=== PATIENT | male | born 1940 | race Caucasian/White ===

== ENCOUNTER 2016-10-25 15:26 | Inpatient (IN) | payer MEDICARE, OTHER ==
[~2016-10-25] VITALS: Ht 177.8 cm; Wt 96.0 kg
--- NOTE | 2016-10-28 07:51 | HP ---
ADMIT: 10/25/2016 RM/LOC: 421 [facility] MR#: [id number] [facility]#: [id number] [address] [address] [place] [address] History and Physical SEX: M AGE: 76 : 1940 DATE OF SERVICE: CHIEF COMPLAINT: Chest pain. HISTORY OF PRESENT ILLNESS: This is a 76-year-old gentleman. He has a history of coronary disease with a bypass many years ago. He has noticed apparently over the past few weeks that when he exercised on his treadmill, he will get tired and have to sit down for a while to rest. This actually happened today and he had to sit down and rest, but then when he got back on the treadmill, he was unable to finish his work out. He then decided to go out and finish his mowing, but only got part way done and had chest pressure that was tight in the middle of his chest that was severe and limiting, so he decided to come in and they came into the emergency room. In the emergency room, he was found to have a troponin of 11, EKG with some lateral ischemic- type changes, inferior IA, age indeterminate. PAST MEDICAL HISTORY: Includes coronary artery disease, status post bypass. He has hypertension, hyperlipidemia, obstructive sleep apnea, on CPAP. He has diabetes type 2, vitamin D deficiency. PAST SURGICAL HISTORY: Include bypass x3, tonsillectomy, cataract surgery. MEDICATIONS: Include: 1. Aspirin 81 mg daily. 2. Vitamin D 1000 units daily. 3. Dapagliflozin 10 mg or placebo. 4. Glipizide 5 mg take one twice a day. 5. Metformin 2000 mg daily. 6. Lopressor 50 mg b.i.d. 7. Pravastatin 10 mg at bedtime. 8. Valsartan/hydrochlorothiazide 160/12.5, one by mouth daily. ALLERGIES: AMLODIPINE, ACTOS, AND CRESTOR. FAMILY HISTORY: Heart disease, arthritis, hypertension. SOCIAL HISTORY: He is a former smoker, none currently. REVIEW OF SYSTEMS: Other complete review of systems obtained and negative except as above. PHYSICAL EXAMINATION: VITAL SIGNS: Blood pressure is 140s over 60s, pulse 77, ox saturation 99% on room air. GENERAL: This is a well-appearing 76-year-old gentleman, no apparent distress. He is alert. He is oriented. HEENT: He is wearing glasses. Pupils are equal, round, and reactive to light and accommodation. His extraocular muscles are intact. His throat is clear. NECK: Supple. HEART: Regular rate and rhythm. ADMIT: 10/25/2016 RM/LOC: 421 [facility] MR#: [id number] [address] [address] [address] [facility] [place] [address] History and Physical SEX: M AGE: 76 : 1940 LUNGS: Diminished, but clear bilaterally. ABDOMEN: Protuberant, soft, without any tenderness. His bowel sounds are normal. EXTREMITIES: Lower extremities have 1+ lower extremity pitting edema bilaterally. He can move all extremities equally bilaterally. SKIN: Exam is normal. LABORATORY AND X-RAY DATA: White count is 11.5, hemoglobin 15.5, platelets of 234. BMP with a sodium 139, potassium 4.0, magnesium 1.9, creatinine 1.3, glucose is 299. BUN 27, troponin 11.3, MB 14.2, CK 221. Chest x-ray shows left lower lobe atelectasis. INR is normal. ASSESSMENT: 1. Non ST elevated myocardial infarction. 2. Coronary artery disease. 3. Diabetes. 4. Hypertension. 5. Hyperlipidemia. PLAN: He has been put on heparin. Cardiology has been consulted. His pain is currently under control. He has nitroglycerin paste on at the current time. We will continue to watch his blood sugars and blood pressures throughout his stay. It sounds like his plan will be to get a cardiac cath in the morning. Phan Marsh MD/ joaquin JOB #: [id number] CC: Phan Marsh, Attending Physician Phan Marsh, Family Physician
--- NOTE | 2016-11-01 10:31 | ER ---
ADMIT: 10/25/2016 RM/LOC: 421 [facility] MR#: [id number] [address] [address] [place] [address] Emergency Room Report SEX: M AGE: 76 : 1940 DATE: 10/25/2016 ADDENDUM: A 76-year-old white male coming in with chest pain on exertion. He was mowing his lawn. When he stops, the pain goes away. Put an inch of nitroglycerin paste on him. Chest x-ray and EKG, nothing acute; however, he does have a bump in his troponin of 11.3. We started heparin protocol for cardiac. I spoke with Dr. Nayak and Dr. Marsh, they will admit. He will be n.p.o. after midnight, and I think they are going to laboratory chemist in the a.m. CONDITION ON DISCHARGE: Critical, but stable. Daniel Ramirez MD/ joaquin JOB #: [id number] CC: Phan Marsh MD, Attending Physician Phan Marsh MD, Family Physician
--- NOTE | 2016-11-03 15:58 | CO ---
ADMIT: 10/25/2016 RM/LOC: 421 [facility] MR#: [id number] [address] [address] [place] [address] Consultation SEX: M AGE: 76 : 1940 DATE OF CONSULTATION: 10/26/2016 ATTENDING PHYSICIAN: Phan Marsh CONSULTING PHYSICIAN: Jacques Nayak MD REASON FOR CONSULT: NonST-elevated myocardial infarction. Makenna Benoit RN, scribing for Dr. Jacques Nayak. HISTORY OF PRESENT ILLNESS: Duke is a pleasant 76-year-old male, I have been asked to see in Cardiology consultation by Dr. Marsh for chest discomfort. He follows regularly with Dr. Reyna in [facility] for his history of coronary artery disease. He is status post three vessel bypass, JUAREZ to LAD, reverse SVG to OM1, and SVG to PDA in 2003. In 2008, he had myocardial infarction again and had cardiac catheterization performed demonstrating three patent grafts. He also has PCI to his mid LAD in the year 1999. Last stress test was in 2008 prior to his most recent cardiac catheterization. He is intolerant to multiple statins and has tried several stating that he is now on pravastatin, which he is concerned that he is having myalgias from as well. He also has history of sleep apnea, diabetes, hypertension, and hyperlipidemia as well as former tobacco use. Duke presented to [facility] yesterday late afternoon with complaints of chest discomfort. He states that he has been having chest discomfort off and on since Tuesday. He exercises daily on his treadmill at home. He said two weeks ago, he was noting decreased activity tolerance and shortness of breath and fatigue on treadmill similar to what he had prior to PCI. On Tuesday, he had chest pain while on the treadmill after a few minutes, rested and this went away. He tried it again on Tuesday as well as Tuesday and had similar results. He stated that his chest discomfort was a pressure, radiating to his back and into his shoulders. He stated it felt like he had somebody holding his breath. On Tuesday morning, around 5:00 a.m., he was very stiff and sore. He was sure was because of his statin medication. So he went back to bed and rested. When he did get up later in the afternoon, he decided to try a mow his lawn and had chest discomfort again at that point. He rested for an hour or so and tried it again resulting in increased shortness breath and increased chest pain. He called the [facility] office at that point and was instructed to go to the emergency room, but instead he called his primary care physician, who encouraged him to be evaluated by the ER, which he eventually did. On the arrival to the ER, lab work was obtained demonstrating CK of 221, MB of 14.3, and troponin of 11.3. EKG did not demonstrate any significant ST elevation and since he has been at rest at the hospital, he has been pain-free. Overnight, he denies any chest discomfort. His cardiac enzymes have been trended out with second set troponin of 12.0 and third of 11.4. CK has been normal. Vital signs have been stable and he has been afebrile. PAST MEDICAL HISTORY: ADMIT: 10/25/2016 RM/LOC: 421 [facility] MR#: [id number] [address] [place] [id number] DUKE MOROCHO [facility] [place] [address] Consultation SEX: M AGE: 76 : 1940 1. Hypertension. 2. Hyperlipidemia. 3. Diabetes. 4. Former tobacco use. 5. Obstructive sleep apnea on CPAP. 6. Coronary artery disease as outlined above. 7. Colon polyps. 8. Cataracts. 9. Hiatal hernia. PAST SURGICAL HISTORY: Left cataract surgery, right cataract surgery, tonsillectomy, adenoidectomy, and bypass surgery. ALLERGIES: MULTIPLE STATIN INTOLERANCE. MEDICATIONS: Current medications include: 1. Aspirin 162 mg p.o. daily. 2. Diovan 320 p.o. daily. 3. Glucotrol XL 5 p.o. b.i.d. 4. Hydrochlorothiazide 12.5 p.o. daily. 5. Lopressor 50 p.o. b.i.d. 6. Norvasc 5 p.o. daily. 7. Pravachol 40 mg p.o. at bedtime. He is having steady drug for diabetes. 8. NovoLog insulin sliding scale before meals and at bedtime. 9. He is currently on a heparin drip per protocol. FAMILY HISTORY: Positive family history of coronary artery disease in multiple family members. Positive family history of stroke and diabetes. SOCIAL HISTORY: Duke is . He lives at home with his . He denies any special diet. He has former tobacco use as well as former chewing tobacco. REVIEW OF SYSTEMS: GENERAL: Reports increased fatigue over the last 2 weeks. Denies any recent fever, chills, or sweats or weight changes. EYES: History of cataracts status post extraction. Denies double vision, blurred vision, or glaucoma. ENT: Denies hearing loss or problems with nose, mouth or throat. PULMONARY: History of obstructive sleep apnea, on CPAP. Denies cough, sputum production, asthma, emphysema or bronchitis. Denies snoring loudly, wakefulness at night, or fatigue upon awakening. GASTROINTESTINAL: Denies heartburn or difficulty swallowing. No change in bowel habits. Denies dark or bloody stools. No history of ulcers, hiatal hernia, or gallbladder or liver disease. GENITOURINARY: Denies dysuria, hematuria, nocturia, urinary tract infection, or kidney stones. Denies history of renal insufficiency or failure. MUSCULOSKELETAL: Denies history of arthritis or gout. Denies muscle or joint pains. ENDOCRINE: History of diabetes. Denies thyroid disease. ADMIT: 10/25/2016 RM/LOC: 421 [facility] MR#: [id number] [address] [facility] [address] [place] [phone] [place] [address] Consultation SEX: M AGE: 76 : 1940 HEMATOLOGIC: Denies history of anemia, easy bruising, or cancer. NEUROLOGIC: Denies chronic headaches, dizziness, syncope, stroke, seizures or numbness or tingling. PSYCHIATRIC: Denies history of mental illness or feelings of depression. PHYSICAL EXAMINATION: VITAL SIGNS: Blood pressure 139/75, heart rate 64, respirations 16, temperature 96.5, oxygenation 96% on room air. SKIN: [place], warm and dry. EYES: Sclerae clear. No xanthelasmas. ENT: Oral mucosa is pink and moist. No jugular venous distention or carotid bruits. CHEST: Respirations are even and unlabored. Lungs are clear to auscultation. HEART: Regular rate and rhythm. Normal S1, S2. No murmurs, rubs or gallops. ABDOMEN: Soft and nontender. MUSCULOSKELETAL: Gait is normal. EXTREMITIES: Peripheral pulses palpable. No clubbing, cyanosis or edema. PSYCHIATRIC: Alert and oriented. Mood and affect are appropriate. DIAGNOSTIC DATA: Chest x-ray on 10/25 shows left lower lobe atelectasis. Sodium 139, potassium 4.0, BUN 27, creatinine 1.3, glucose 299, and magnesium 1.9. White blood cell count 11.5, hemoglobin 15.5, hematocrit 46.2, platelets 198. Third set of cardiac enzymes show a CK of 155 and a troponin of 11.4. Peak troponin on second set of 12.0. LDH is 269. INR less than 1.0. ASSESSMENT AND PLAN: 1. Non-ST elevated myocardial infarction. 2. Coronary artery disease status post bypass. 3. Hypertension. 4. Hyperlipidemia. 5. Diabetes. Reviewing Duke's labs and symptoms, he looks to have had an acute coronary event. He has very suspicious symptoms and with his extent of coronary artery ADMIT: 10/25/2016 RM/LOC: 421 [facility] MR#: [id number] [address] [address] [place] [address] Consultation SEX: M AGE: 76 : 1940 disease and three patent grafts in 2008, I am suspicious that he has significant stenosis in one of his grafts. He has been n.p.o. after midnight. I will keep him n.p.o. at this point and I discussed with him and his family today the probability of sending him to [place] today for heart catheterization and further treatment as needed. He is agreeable to this plan and I will have him transferred today. Thank you for the consultation. I have read and agree with the documentation that has been completed regarding this visit. By signing this record, I attest that the documentation was completed in my physical presence and is an accurate record of the encounter. Makenna Benoit RN / Jacques Nayak MD / joaquin JOB #: [id number] CC: Phan Marsh, Attending Physician Phan Marsh, Family Physician
--- NOTE | 2016-11-09 06:50 | DS ---
ADMIT: 10/25/2016 RM/LOC: 421 [facility] MR#: [id number] [address] [address] [place] [address] General Discharge Summary SEX: M AGE: 76 : 1940 ADMISSION DATE: 10/25/2016 DISCHARGE DATE: 10/26/2016 FINAL DIAGNOSES: 1. [id number] myocardial infarction. 2. Chest pain. 3. Coronary artery disease. 4. Diabetes. 5. Hypertension. 6. Hyperlipidemia. REASON FOR ADMISSION: See dictated H and P, but briefly, this is a 76-year- old gentleman with known coronary artery disease, presented with increasing chest pain and chest pain got worse with exertion while mowing his lawn. He presented to the hospital, found to have an elevated troponin, EKGs were unchanged, he was started on heparin. After more evaluation, it was felt best that he get transferred to the [facility] after Cardiology consultation, so this was done and the patient was continued on his same home medications at that time and he was discharged under [facility]'s care. Phan Marsh MD/ joaquin JOB #: [id number] CC: Phan Marsh MD, Attending Physician Phan Marsh MD, Family Physician
== END 2016-10-26 10:45 | disposition short-term general hospital (02) | DRG 282 ==
LOC: ER 15:26 → 4PCU 17:17
PROVIDERS: ADMIT Internal Medicine
DX: I21.4 Non-ST elevation (NSTEMI) myocardial infarction (principal); E11.9 Type 2 diabetes mellitus without complications; Z95.1 Presence of aortocoronary bypass graft; I10 Essential (primary) hypertension; I25.10 Atherosclerotic heart disease of native coronary artery without angina pectoris; E78.5 Hyperlipidemia, unspecified; G47.33 Obstructive sleep apnea (adult) (pediatric); I25.2 Old myocardial infarction; K44.9 Diaphragmatic hernia without obstruction or gangrene; E55.9 Vitamin D deficiency, unspecified; Z79.82 Long term (current) use of aspirin; Z79.84 Long term (current) use of oral hypoglycemic drugs; Z87.891 Personal history of nicotine dependence; Z86.010 Personal history of colon polyps; Z82.49 Family history of ischemic heart disease and other diseases of the circulatory system